=== PATIENT | female | born 1970 | race African-American/Black ===

== ENCOUNTER 2016-09-28 19:53 | Emergency (ER) | payer OTHER ==
[~2016-09-28] VITALS: Ht 170.2 cm; Wt 79.4 kg
[~2016-09-28 19:53] MED LIST: AMITRIPTYLINE H50 M2 PO; CIPROFLOXACIN500 M1 PO; DOXYCYCLINE 10100 MG PO; FLEXERIL PO; FOLIC ACID0.4 MG PO; IBUPROFEN 600600 M1 PO; IRON256 MG PO; LOESTRIN1 EAC1; METHOTREXATE 22.5 MG PO; NOHOMEMEDICATIONS; NORCO 5-325 TA1 EACH PO; ONE DAILY WOME1 EAC3 PO; PREDNISONE 10 M10 MG PO; PREDNISONE 20 M20 M1 PO; PREDNISONE 20 M20 MG PO; PROMETHAZINE D480 ML PO; PROVENTIL IN; PROVERA10 MG PO; ULTRAM 50MG TAB50 MG PO
[2016-09-28] MEDS ORDERED: ACETAMINOPHEN-1 EAC1 PO (21:23)
[2016-09-28] MEDS ORDERED: IBUPROFEN 600600 M1 PO (21:23)
== END 2016-09-28 21:49 | disposition home or self-care (01) ==
LOC: ER 19:53
DX: T22.012A Burn of unspecified degree of left forearm, initial encounter (principal); F10.99 Alcohol use, unspecified with unspecified alcohol-induced disorder; X15.8XXA Contact with other hot household appliances, initial encounter; Y93.9 Activity, unspecified; Y92.009 Unspecified place in unspecified non-institutional (private) residence as the place of occurrence of the external cause; Y99.9 Unspecified external cause status

== ENCOUNTER 2018-01-25 21:27 | Emergency (ER) | payer OTHER ==
[~2018-01-25] VITALS: Ht 167.6 cm; Wt 74.8 kg
[~2018-01-25 21:27] MED LIST changes: +ACETAMINOPHEN-1 EAC1 PO
[2018-01-25] MEDS ORDERED: KEFLEX500 M1 PO (22:40)
[2018-01-25] MEDS ORDERED: HYDROCODONE-AP1 EAC6 PO (22:40)
== END 2018-01-25 23:13 | disposition home or self-care (01) ==
LOC: ER 21:27
DX: T24.291A Burn of second degree of multiple sites of right lower limb, except ankle and foot, initial encounter (principal); T31.0 Burns involving less than 10% of body surface; F17.210 Nicotine dependence, cigarettes, uncomplicated; X08.8XXA Exposure to other specified smoke, fire and flames, initial encounter; Y93.89 Activity, other specified; Y92.89 Other specified places as the place of occurrence of the external cause; Y99.8 Other external cause status

== ENCOUNTER 2018-02-01 08:41 | Emergency (ER) | payer OTHER ==
[~2018-02-01] VITALS: Ht 167.6 cm; Wt 68.0 kg
[~2018-02-01 08:41] MED LIST changes: +HYDROCODONE-AP1 EAC6 PO; +KEFLEX500 M1 PO
[2018-02-01] MEDS ORDERED: KEFLEX500 M1 PO (09:11)
[2018-02-01] MEDS ORDERED: HYDROCODONE-AP1 EAC6 PO (09:11)
== END 2018-02-01 09:28 | disposition home or self-care (01) ==
LOC: ER 08:41
DX: T24.211D Burn of second degree of right thigh, subsequent encounter (principal); F17.210 Nicotine dependence, cigarettes, uncomplicated; X58.XXXD Exposure to other specified factors, subsequent encounter

== ENCOUNTER 2018-02-07 21:18 | Emergency (ER) | payer OTHER ==
[~2018-02-07] VITALS: Ht 167.6 cm; Wt 72.6 kg
[2018-02-07] MEDS ORDERED: HYDROCODONE-AP1 EAC6 PO (21:43)
== END 2018-02-07 22:31 | disposition home or self-care (01) ==
LOC: ER 21:18
DX: T24.211D Burn of second degree of right thigh, subsequent encounter (principal); T31.0 Burns involving less than 10% of body surface; D86.9 Sarcoidosis, unspecified; F17.210 Nicotine dependence, cigarettes, uncomplicated; X10.2XXD Contact with fats and cooking oils, subsequent encounter

== ENCOUNTER 2018-06-15 16:44 | Emergency (ER) | payer OTHER ==
[~2018-06-15] VITALS: Ht 167.6 cm; Wt 70.3 kg
[2018-06-15] MEDS ORDERED: PREDNISONE 10 M10 MG PO (17:53)
== END 2018-06-15 18:15 | disposition home or self-care (01) ==
LOC: ER 16:44
DX: D86.9 Sarcoidosis, unspecified (principal); F17.210 Nicotine dependence, cigarettes, uncomplicated; Z98.890 Other specified postprocedural states

== ENCOUNTER 2018-09-13 17:59 | Emergency (ER) | payer OTHER ==
[~2018-09-13] VITALS: Ht 167.6 cm; Wt 75.8 kg
[2018-09-13 19:33] LABS: ABSOLUTE NEUTROPHILS 6.1 thou/uL (1.4-8.2); BASOPHILS 1.1 % (0.0-2.0); EOSINOPHILS 1.3 % (0.0-3.0); HEMATOCRIT 36.5 % (37.0-47.0); HEMOGLOBIN 11.9 gm/dL (12.0-15.0); LYMPHOCYTES 14.8 % (24.0-44.0); MCHC 32.5 g/dL (28.0-37.0); MCV 86.2 fL (80.0-100.0); MONOCYTES 10.8 % (1.0-8.0); PLATELET COUNT 278 thou/uL (150-400); RBC 4.24 mil/uL (4.20-5.00); RDW 19.5 % (10.5-14.5); WBC 8.4 thou/uL (4.0-11.0)
[2018-09-13 19:41] LABS: ANION GAP 8 mmol/L (7-16); BUN 12 mg/dL (7-18); CALCIUM 9.4 mg/dL (8.5-10.1); CHLORIDE 101 mmol/L (98-107); CO2 30 mmol/L (21-32); CREATININE 0.8 mg/dL (0.6-1.0); GLUCOSE 82 mg/dL (74-106); POTASSIUM 3.7 mmol/L (3.5-5.1); SODIUM 139 mmol/L (136-145)
[2018-09-13 19:50] LABS: ALBUMIN 3.8 g/dL (3.4-5.0); SGOT 30 U/L (15-37); SGPT 27 U/L (30-65); TOTAL BILIRUBIN 0.2 mg/dL (<0.1-1.0); TOTAL PROTEIN 8.9 g/dL (6.4-8.2); TROPONIN-I <0.06 ng/mL (<0.06)
[2018-09-13 20:07] LABS: ANISOCYTOSIS 1+
[2018-09-13] MEDS ORDERED: VENTOLIN HFA 1818 GM INH (20:43)
[2018-09-13] MEDS ORDERED: PREDNISONE 10 M10 MG PO (20:43)
[2018-09-13 21:07] VITALS: BP 124/85
--- NOTE | 2018-09-14 07:58 | EKG ---
[place] [address] [facility] [place] [address] ELECTROCARDIOGRAM REPORT Name: AUSTIN FUENTES Room #: DEP [facility]#: [id number] Admission: 09/13/18 Attend Phys: Discharge: 09/13/18 Date of : 70 Report #: [id number] THIS REPORT FOR: //name// [facility] ED Test Date: 2018-09-13 Test Time: 20:02:45 Pat Name: AUSTIN FUENTES Department: Room: Gender: F Pathology Tech: camden : 1970 Requested By: Yareli Beltran Order Number: [id number] MD: Naresh Yoder Measurements Intervals [place] Rate: 78 P: 44 [place]: 161 QRS: 7 QRSD: 84 T: 25 QT: 435 QTc: 496 Interpretive Statements Sinus rhythm Abnormal R-wave progression, early transition Borderline prolonged QT interval No previous ECG available for comparison Electronically Signed On 09-14-2018 7:58:24 SUBCONTRACT ADMINISTRATOR by Naresh Yoder [email or web address] <ELECTRONICALLY SIGNED> By: Naresh Yoder MD, [facility] 09/14/18 0758 01 01 Naresh Yoder MD, FACC /EPI
== END 2018-09-13 21:08 | disposition home or self-care (01) ==
LOC: ER 17:59
PROVIDERS: Physician Assistant
DX: D86.9 Sarcoidosis, unspecified (principal); R06.00 Dyspnea, unspecified; F17.210 Nicotine dependence, cigarettes, uncomplicated; Z98.890 Other specified postprocedural states

== ENCOUNTER 2018-10-31 17:31 | Inpatient (IN) | payer OTHER ==
[~2018-10-31] VITALS: Ht 167.6 cm; Wt 77.1 kg
[~2018-10-31 17:31] MED LIST changes: +VENTOLIN HFA 1818 GM INH
[2018-10-31 17:49] VITALS: BP 148/64
[2018-10-31 19:45] LABS: HEMATOCRIT 35.2 % (37.0-47.0); HEMOGLOBIN 11.2 gm/dL (12.0-15.0); MCH 27.7 pg (26.0-34.0); MCHC 31.9 g/dL (28.0-37.0); MCV 86.8 fL (80.0-100.0); PLATELET COUNT 212 thou/uL (150-400); RBC 4.06 mil/uL (4.20-5.00)
[2018-10-31 19:54] LABS: ANION GAP 9 mmol/L (7-16); BUN 11 mg/dL (7-18); CALCIUM 9.3 mg/dL (8.5-10.1); CHLORIDE 97 mmol/L (98-107); CO2 31 mmol/L (21-32); CREATININE 0.7 mg/dL (0.6-1.0); GLUCOSE 168 mg/dL (74-106); SODIUM 137 mmol/L (136-145)
[2018-10-31 19:58] LABS: POTASSIUM 2.9 mmol/L (3.5-5.1)
[2018-10-31 20:02] LABS: TROPONIN-I <0.06 ng/mL (<0.06)
[2018-10-31 20:24] LABS: ABSOLUTE NEUTROPHILS 11.9 thou/uL (1.4-8.2)
[2018-10-31 20:25] LABS: ANISOCYTOSIS 1+
--- NOTE | 2018-10-31 20:41 | NUR ---
PT AMBULATED TO BATHROOM WITH STEADY GAIT.
[2018-10-31] MEDS ORDERED: PROMETH-CODEIN 65 ML PO (21:32)
[2018-10-31] MEDS ORDERED: DOXYCYCLINE 10100 MG PO (21:32)
[2018-10-31] MEDS ORDERED: MEDROLDOSEPACK PO (21:32)
[2018-10-31 22:13] VITALS: BP 164/109
[2018-10-31 22:30] VITALS: BP 147/103
[2018-10-31 22:36] VITALS: BP 131/91
[2018-11-01] VITALS: BP 118/81
[2018-11-01 04:15] VITALS: BP 120/80
[2018-11-01 06:33] LABS: CREATININE 0.8 mg/dL (0.6-1.0); MAGNESIUM 1.3 mg/dL (1.8-2.4); POTASSIUM 3.8 mmol/L (3.5-5.1)
--- NOTE | 2018-11-01 06:41 | NUR ---
ASSUMED CARE OF PT DURING ADMISSION TO THE UNIT. A&OX4, VS STABLE. C/O COUGH AND BEING SOA. O2 SAT WAS 99% ON CHECK. HOME DOSE OF 2L O2 BY NC INITIATED PER PT REQUEST. STRONG COUGH EFFORT, WAS CONGESTIVE BUT UNABLE TO COUGH UP SPUTUM SAMPLE SO FAR. IV ANTIBX GIVEN ORDERED. REQUEST DINNER BOX, PROVIDED, PT ATE 100% AND TOLERATED FINE. CURRENTLY RESTING AND PROGRESSING TOWARDS POC GOALS.
[2018-11-01 07:22] VITALS: BP 139/97
--- NOTE | 2018-11-01 09:20 | EKG ---
[address] [place] [address] ELECTROCARDIOGRAM REPORT Name: AUSTIN FUENTES Room #: 349-I ADM IN .R.#: [id number] ������������������ Admission: 10/31/18 ������������������ Attend Phys: Jonas Harris MD Discharge: ������������������ Date of : 70 Report #: [id number] ����������������������������������������������������������������� [id number] THIS REPORT FOR: //name// [facility] ED Test Date: 2018-10-31 Test Time: 19:22:24 Pat Name: AUSTIN FUENTES Department: Room: [facility] Gender: F Breaker Engineer: KKODRITA : 1970 Requested By: Bowen Oliveros Order Number: [id number] MD: Naresh Yoder Measurements Intervals [place] Rate: 68 P: 60 FL: 157 QRS: 13 QRSD: 88 T: 17 QT: 436 QTc: 464 Interpretive Statements Sinus rhythm No significant abnormality Compared to ECG 09/13/2018 20:02:45 No significant changes Electronically Signed On 11-01-2018 9:20:26 CUSTOMER SUPPORT ANALYST by Naresh Yoder [email or web address] ��������������������������������������������� <ELECTRONICALLY SIGNED> ���������������������������������������� By: Naresh Yoder MD, [facility] ��������������������������������������������� 11/01/18 0920 21 21 Naresh Yoder MD, [facility] /EPI
--- NOTE | 2018-11-01 13:01 | NUR ---
INITIAL ASSESSMENT: Pt evaluated for d/c planning needs. Reviewed chart and spoke with nurse and pt. Pt is alert and oriented. Pt lives in apartment with children and was independent with ADL's prior to admission to the hospital. Pt had caregiver services through Medicaid in the past, but not currently. Pt has home 02, but does not recall name of provider. Pt has portable tank in her room for trip home. Pt has not had home health in the past. Pt plans on returning home on d/c from hospital. Will remain available to assist as needed.
[2018-11-01 15:53] VITALS: BP 152/110
--- NOTE | 2018-11-01 16:24 | 2DMMODE ---
[place] [address] [email or web address] [place] [address] 2 D/M-MODE ECHOCARDIOGRAM Name: AUSTIN FUENTES [place] Room #: 349-I ADM IN ..#: [id number] ������������� Admission: 10/31/18 ������������� Attend Phys: Jonas Harris MD Discharge: ��� ������������� ��� Date of : 70 Date of Service: 11/01/18 1624 �� Report #: [id number] �������� ��������������������������������������������[id number] THIS REPORT FOR: //name// APPROVED REPORT Study performed: 11/01/2018 12:52:33 EXAM: Comprehensive 2D, Doppler, and color-flow Echocardiogram Patient Location: Bedside Room #: 349 Status: routine BSA: 1.87 HR: 67 bpm BP: 139/97 mmHg Rhythm: NSR Other Information Study Quality: Good Indications Chest Pain Hypoxia Sarcoidosis 2D Dimensions IVSd: 10.55 (7-11mm) LVOT Diam: 20.00 (18-24mm) LVDd: 36.58 mm PWd: 10.89 (7-11mm) Ascending Ao: 34.21 (22-36mm) LVDs: 28.39 (25-40mm) Aortic Root: 33.22 mm LV Single Plane 4CH: 58.99 % LV Single Plane 2CH: 60.46 % Biplane EF: 58.5 % Volumes Left Atrial Volume (Systole) Single Plane 4CH: 33.66 mL Single Plane 2CH: 42.66 mL LA ESV Index: 23.00 mL/m2 Aortic Valve AoV Peak Tom.: 1.26 m/s AO Peak Gr.: 6.35 mmHg LVOT Max P.88 mmHg LVOT Max V: 0.98 m/s GONZALO Vmax: 2.44 cm2 [facility] [address] [place] [address] 2 D/M-MODE ECHOCARDIOGRAM Name: AUSTIN FUENTES Praful Room #: [address] [place] [address] IN [facility]#: [id number] ������������� Admission: 10/31/18 ������������� Attend Phys: Jonas Harris MD Discharge: ��� ������������� ��� Date of : 70 Date of Service: 11/01/18 1624 �� Report #: [id number] �������� ��������������������������������������������[id number] Mitral Valve E/A Ratio: 0.8 MV Decel. Time: 223.63 ms MV E Max Tom.: 0.66 m/s MV A Tom.: 0.86 m/s MV PHT: 64.85 ms IVRT: 79.58 ms TDI E/Lateral E': 5.50 E/Medial E': 9.43 Medial E' Tom.: 0.07 m/s Lateral E' Tom.: 0.12 m/s Pulmonary Valve PV Peak Tom.: 0.77 m/s PV Peak Gr.: 2.43 mmHg Pulmonary Vein P Vein S: 0.79 m/s P Vein A: 0.30 m/s P Vein D: 0.40 m/s P Vein A Dur.: 93.4 msec P Vein S/D Ratio: 1.98 Tricuspid Valve RAP Estimate: 7.00 mmHg Left Ventricle The left ventricle is normal size. There is normal LV segmental wall motion. Borderline concentric left ventricular hypertrophy. Left ventricular systolic function is normal. The left ventricular ejection fraction is within the normal range. LVEF is 60%. Mild diastolic dysfunction is present (impaired relaxation pattern). Right Ventricle The right ventricle is normal size. The right ventricular systolic function is normal. Atria The left atrium size is normal. The right atrium size is normal. Aortic Valve The Aortic valve is sclerotic. No aortic regurgitation is present. There is no aortic valvular stenosis. Mitral Valve The mitral valve is normal in structure. Trace mitral regurgitation. [address] [address] 2 D/M-MODE ECHOCARDIOGRAM Name: AUSTIN FUENTES Room #: 349-I [facility] IN [facility]#: [id number] ������������� Admission: 10/31/18 ������������� Attend Phys: Jonas Harris MD Discharge: ��� ������������� ��� Date of : 70 Date of Service: 11/01/18 1624 �� Report #: [id number] �������� ��������������������������������������������[id number] No evidence of mitral valve stenosis. Tricuspid Valve The tricuspid valve is normal in structure. Trace tricuspid regurgitation. Unable to assess PA pressure. Pulmonic Valve The pulmonary valve is normal in structure. There is no pulmonic valvular regurgitation. Great Vessels The aortic root is normal in size. IVC is normal in size and collapses >50% with inspiration. Pericardium There is no pericardial effusion. <Conclusion> The left ventricle is normal size. LVEF is 60%. The Aortic valve is sclerotic. No aortic regurgitation is present. There is no aortic valvular stenosis. The mitral valve is normal in structure. Trace mitral regurgitation. The tricuspid valve is normal in structure. Trace tricuspid regurgitation. Unable to assess PA pressure. There is no pericardial effusion. ��������������������������������������������� <ELECTRONICALLY SIGNED> ���������������������������������������� By: Shawn Coffey MD ��������������������������������������������� 11/01/18 1624 1624 1624 Shawn Coffey MD /INF
--- NOTE | 2018-11-01 16:33 | NUR ---
ASSUMED PATIEM CARE AT 0700. A/O XO . NO SOB NOTED. ABLE TO COUGH OUT SOME PHLEGM. VSS. PROGRESSING TOWARDS POC GOALS.
[2018-11-01 19:04] VITALS: BP 162/109
[2018-11-01 23:07] LABS: GLYCOHEMOGLOBIN (HGB A1C) 5.7 % (4.8-5.6)
[2018-11-02 04:14] VITALS: BP 150/96
[2018-11-02 05:26] LABS: ABSOLUTE NEUTROPHILS 12.4 thou/uL (1.4-8.2); BASOPHILS 0.1 % (0.0-2.0); HEMATOCRIT 31.2 % (37.0-47.0); HEMOGLOBIN 9.9 gm/dL (12.0-15.0); LYMPHOCYTES 4.1 % (24.0-44.0); MCHC 31.7 g/dL (28.0-37.0); MCV 88.2 fL (80.0-100.0); MONOCYTES 3.9 % (1.0-8.0); PLATELET COUNT 250 thou/uL (150-400); POLYS 91.9 % (36.0-66.0); RBC 3.54 mil/uL (4.20-5.00); RDW 19.8 % (10.5-14.5); WBC 13.5 thou/uL (4.0-11.0)
--- NOTE | 2018-11-02 05:57 | NUR ---
PATIENTS CARES WERE ASSUMED AT SHIFT CHANGE. PATIENT WAS ASSESSED AND MEDS WERE PASSED. PATIENT DID AMBULATE IN THE [place] THIS SHIFT. CHANGES IN HER BREATHING HAS BEEN BETTER. HOURLY ROUNDING WAS DONE PATIENT DID APPER TO BE SLEEPING WELL. THE BED IS IN A LOW AND LOCKED POSITION.
[2018-11-02 07:26] VITALS: BP 129/81
[2018-11-02] MEDS ORDERED: BENZONATATE100 MG PO (08:03)
[2018-11-02] MEDS ORDERED: HYDROCODONE-AP1 EAC6 PO (08:03)
[2018-11-02] MEDS ORDERED: AZITHROMYCIN 2250 MG PO (08:03)
[2018-11-02 08:44] VITALS: BP 129/81
[2018-11-02 08:48] VITALS: BP 129/81
[2018-11-02 10:23] VITALS: BP 129/81
[2018-11-02 13:13] VITALS: BP 129/81
--- NOTE | 2018-11-02 13:13 | NUR ---
patient discharged to home with scripts. medications reviewes as well as discharge instructions. patient denied further questions. iv was removed by pct.
--- NOTE | 2018-11-02 14:21 | NUR ---
DISCHARGE NOTE: SW reviewed chart and spoke with nursing and attending physician. Pt is medically stable for discharge home today. Pt's family to provide transportation home. No SW discharge needs identified at this time, but is available to assist should needs arise.
== END 2018-11-02 14:17 | disposition home or self-care (01) | DRG 871 ==
LOC: ER 17:31 → 3W 22:31
PROVIDERS: Nurse Practitioner Acute Care; Physician Assistant; ADMIT Hospitalist
DX: A41.9 Sepsis, unspecified organism (principal); J18.9 Pneumonia, unspecified organism; E87.6 Hypokalemia; D86.0 Sarcoidosis of lung; R73.9 Hyperglycemia, unspecified; E83.42 Hypomagnesemia; F17.210 Nicotine dependence, cigarettes, uncomplicated; Z98.891 History of uterine scar from previous surgery; Z98.42 Cataract extraction status, left eye; Z79.899 Other long term (current) drug therapy; Z23 Encounter for immunization
CPT/HCPCS: 10080

== ENCOUNTER → 2018-12-30 | Outpatient (CLI) | payer OTHER ==
[~2018-12-30] MED LIST changes: +AZITHROMYCIN 2250 MG PO; +BENZONATATE100 MG PO; +MEDROLDOSEPACK PO; +PROMETH-CODEIN 65 ML PO
== END ==
LOC: CAT 12-16 09:37
DX: J98.4 Other disorders of lung (principal); J96.11 Chronic respiratory failure with hypoxia; J44.9 Chronic obstructive pulmonary disease, unspecified; D86.9 Sarcoidosis, unspecified

== ENCOUNTER 2019-05-04 19:05 | Emergency (ER) | payer OTHER ==
[~2019-05-04] VITALS: Ht 167.6 cm; Wt 77.1 kg
[2019-05-04 20:26] LABS: URINE BILIRUBIN NEGATIVE (Negative); URINE BLOOD NEGATIVE (Negative); URINE CLARITY CLEAR; URINE COLOR YELLOW; URINE GLUCOSE-RANDOM* NEGATIVE (Negative); URINE KETONES NEGATIVE (Negative); URINE LEUKOCYTES-REFLEX NEGATIVE (Negative); URINE NITRITE-REFLEX NEGATIVE (Negative); URINE PROTEIN (DIPSTICK) TRACE (Negative); URINE SPECIFIC GRAVITY 1.015 (1.005-1.035)
[2019-05-04 20:48] LABS: HEMATOCRIT 33.3 % (37.0-47.0); HEMOGLOBIN 10.7 gm/dL (12.0-15.0); MCH 27.3 pg (26.0-34.0); MCHC 32.3 g/dL (28.0-37.0); MCV 84.4 fL (80.0-100.0); PLATELET COUNT 148 thou/uL (150-400); RBC 3.94 mil/uL (4.20-5.00); RDW 20.4 % (10.5-14.5); WBC 5.4 thou/uL (4.0-11.0)
[2019-05-04 20:59] LABS: ANION GAP 13 mmol/L (7-16); BUN 12 mg/dL (7-18); CALCIUM 8.7 mg/dL (8.5-10.1); CHLORIDE 101 mmol/L (98-107); CO2 26 mmol/L (21-32); CREATININE 0.7 mg/dL (0.6-1.0); GLUCOSE 101 mg/dL (74-106); POTASSIUM 3.5 mmol/L (3.5-5.1); SODIUM 140 mmol/L (136-145)
[2019-05-04 21:04] LABS: APTT 28.1 Seconds (24.5-32.8); D-DIMER 2.66 ug/mLFEU (0.19-0.50); PROTIME 9.8 Seconds (9.3-11.4)
[2019-05-04 21:10] LABS: ALBUMIN 3.5 g/dL (3.4-5.0); MAGNESIUM 1.5 mg/dL (1.8-2.4); SGOT 55 U/L (15-37); SGPT 32 U/L (30-65); TOTAL BILIRUBIN 0.4 mg/dL (<0.1-1.0); TOTAL PROTEIN 8.5 g/dL (6.4-8.2); TROPONIN-I <0.06 ng/mL (<0.06)
[2019-05-04 21:21] LABS: ABSOLUTE NEUTROPHILS 3.1 thou/uL (1.4-8.2); ANISOCYTOSIS 1+
[2019-05-04] MEDS ORDERED: DOXYCYCLINE 10100 MG PO (23:56)
[2019-05-04] MEDS ORDERED: TESSALON PERLE100 MG PO (23:56)
[2019-05-04] MEDS ORDERED: PREDNISONE 20 M20 MG PO (23:56)
[2019-05-04] MEDS ORDERED: VENTOLIN HFA 1818 GM INH (23:56)
[2019-05-05 00:19] VITALS: BP 157/105
--- NOTE | 2019-05-05 08:38 | EKG ---
[address] [address] ELECTROCARDIOGRAM REPORT Name: AUSTIN FUENTES Room #: DEP [facility]#: [id number] Admission: 05/04/19 Attend Phys: Discharge: 05/05/19 Date of : 70 Report #: [id number] THIS REPORT FOR: //name// [facility] ED Test Date: 2019-05-04 Test Time: 20:54:25 Pat Name: AUSTIN FUENTES Department: Room: Gender: F Splicing Technician: KMD : 1970 Requested By: Ministerio Thakkar Order Number: [id number] MD: Ronal Guzman Measurements Intervals [place] Rate: 82 P: 68 [place]: 156 QRS: 11 QRSD: 81 T: 10 QT: 445 QTc: 520 Interpretive Statements Sinus rhythm Probable left atrial enlargement Prolonged QT interval Compared to ECG 10/31/2018 19:22:24 Prolonged QT interval now present Electronically Signed On 05-05-2019 8:38:32 CDT by Ronal Guzman [email or web address] <ELECTRONICALLY SIGNED> By: Ronal Guzman MD 05/05/19 0838 53 53 Ronal Guzman MD /ROWENA
== END 2019-05-05 00:19 | disposition home or self-care (01) ==
LOC: ER 19:05
PROVIDERS: Emergency Medicine
DX: J20.9 Acute bronchitis, unspecified (principal); R04.2 Hemoptysis; D86.9 Sarcoidosis, unspecified; R42 Dizziness and giddiness; F17.210 Nicotine dependence, cigarettes, uncomplicated; Z98.890 Other specified postprocedural states

== ENCOUNTER 2019-07-17 11:41 | Emergency (ER) | payer OTHER ==
[~2019-07-17] VITALS: Ht 167.6 cm; Wt 72.6 kg
[~2019-07-17 11:41] MED LIST changes: +TESSALON PERLE100 MG PO
[2019-07-17 11:45] VITALS: BP 114/92
[2019-07-17] MEDS ORDERED: NORCO 5-325 TA1 EAC1 PO (12:19)
[2019-07-17] MEDS ORDERED: LIDOCAINE PAIN1 EACH TRANSDERM (12:19)
[2019-07-17] MEDS ORDERED: CYCLOBENZAPRINE5 MG PO (12:19)
== END 2019-07-17 12:32 | disposition home or self-care (01) ==
LOC: ER 11:41
DX: M54.2 Cervicalgia (principal); M54.5 Low back pain; R05 Cough; D86.9 Sarcoidosis, unspecified; F17.210 Nicotine dependence, cigarettes, uncomplicated; Z98.890 Other specified postprocedural states; V49.50XA Passenger injured in collision with unspecified motor vehicles in traffic accident, initial encounter; Y92.89 Other specified places as the place of occurrence of the external cause; Y93.89 Activity, other specified; Y99.8 Other external cause status

== ENCOUNTER 2019-12-28 18:56 | Emergency (ER) | payer OTHER ==
[~2019-12-28] VITALS: Ht 170.2 cm; Wt 72.6 kg
[~2019-12-28 18:56] MED LIST changes: +CYCLOBENZAPRINE5 MG PO; +LIDOCAINE PAIN1 EACH TRANSDERM; +NORCO 5-325 TA1 EAC1 PO
[2019-12-28] MEDS ORDERED: PROAIR HFA8.5 GM INH (19:54)
[2019-12-28] MEDS ORDERED: PREDNISONE 5 MG5 M1 PO (19:54)
[2019-12-28 20:15] VITALS: BP 134/95
== END 2019-12-28 20:18 | disposition home or self-care (01) ==
LOC: ER 18:56
DX: D86.9 Sarcoidosis, unspecified (principal); R05 Cough; R06.02 Shortness of breath; M79.10 Myalgia, unspecified site; F17.210 Nicotine dependence, cigarettes, uncomplicated

== ENCOUNTER 2020-10-20 21:26 | Emergency (ER) | payer OTHER ==
[~2020-10-20] VITALS: Ht 170.2 cm; Wt 68.5 kg
[~2020-10-20 21:26] MED LIST changes: +ADVAIR 100-501 EACH INH; +PREDNISONE 10 M10 M1 PO; +PREDNISONE 5 MG5 M1 PO; +PROAIR HFA8.5 GM INH; +TIZANIDINE4 MG/1 TA1 PO
[2020-10-20] MEDS ORDERED: PREDNISONE50 MG PO (23:07)
[2020-10-20 23:46] VITALS: BP 130/97
== END 2020-10-20 23:47 | disposition home or self-care (01) ==
LOC: ER 21:26
DX: S01.81XA Laceration without foreign body of other part of head, initial encounter (principal); J44.9 Chronic obstructive pulmonary disease, unspecified; M79.601 Pain in right arm; R42 Dizziness and giddiness; Z79.899 Other long term (current) drug therapy; W00.0XXA Fall on same level due to ice and snow, initial encounter; Y93.89 Activity, other specified; Y92.481 Parking lot as the place of occurrence of the external cause; Y99.8 Other external cause status

== ENCOUNTER 2020-10-29 11:35 | Emergency (ER) | payer OTHER ==
[~2020-10-29] VITALS: Ht 170.2 cm; Wt 68.0 kg
[~2020-10-29 11:35] MED LIST changes: +PREDNISONE50 MG PO
[2020-10-29 12:23] VITALS: BP 115/78
== END 2020-10-29 12:32 | disposition home or self-care (01) ==
LOC: ER 11:35
DX: S01.81XD Laceration without foreign body of other part of head, subsequent encounter (principal); Z79.899 Other long term (current) drug therapy; X58.XXXD Exposure to other specified factors, subsequent encounter

== ENCOUNTER 2020-12-12 13:42 | Emergency (ER) | payer OTHER ==
[~2020-12-12] VITALS: Ht 172.7 cm; Wt 74.8 kg
[2020-12-12 14:20] LABS: ABSOLUTE NEUTROPHILS 6.3 thou/uL (1.4-8.2); BASOPHILS 0.6 % (0.0-2.0); HEMATOCRIT 38.1 % (37.0-47.0)
[2020-12-12 14:22] LABS: EOSINOPHILS 1.3 % (0.0-3.0); HEMOGLOBIN 12.6 gm/dL (12.0-15.0); LYMPHOCYTES 8.3 % (24.0-44.0); MCH 33.2 pg (26.0-34.0); MCV 100.8 fL (80.0-100.0); MONOCYTES 8.6 % (1.0-8.0); PLATELET COUNT 217 thou/uL (150-400); POLYS 81.2 % (36.0-66.0); RBC 3.78 mil/uL (4.20-5.00); RDW 15.6 % (10.5-14.5); WBC 8.8 thou/uL (4.0-11.0)
[2020-12-12 15:00] LABS: URINE BILIRUBIN NEGATIVE (Negative); URINE BLOOD NEGATIVE (Negative); URINE CLARITY CLEAR; URINE COLOR YELLOW; URINE GLUCOSE-RANDOM* NEGATIVE (Negative); URINE KETONES NEGATIVE (Negative); URINE LEUKOCYTES-REFLEX TRACE (Negative); URINE PROTEIN (DIPSTICK) 1+ (Negative); URINE SPECIFIC GRAVITY 1.025 (1.005-1.035)
[2020-12-12 15:01] LABS: URINE NITRITE-REFLEX POSITIVE (Negative)
[2020-12-12 15:07] LABS: CALCIUM 8.5 mg/dL (8.5-10.1); CREATININE 0.7 mg/dL (0.6-1.0); POTASSIUM 3.5 mmol/L (3.5-5.1)
[2020-12-12 15:11] LABS: SQUAMOUS >10 Many /LPF (0-3)
[2020-12-12 15:12] LABS: BACTERIA-REFLEX >30 Many /HPF (None Seen); CASTS None Seen /LPF (None Seen); CRYSTALS None Seen /LPF (None Seen); URINE RBC 0-2 Rare /HPF (0-2); URINE WBC-REFLEX 0-5 Rare /HPF (0-5)
[2020-12-12 15:13] LABS: MUCUS 4-6 Moderate strn/LPF (None Seen)
[2020-12-12 15:13] LABS: ALBUMIN 3.3 g/dL (3.4-5.0); TOTAL BILIRUBIN 0.3 mg/dL (0.2-1.0); TOTAL PROTEIN 7.2 g/dL (6.4-8.2)
[2020-12-12] MEDS ORDERED: PREDNISONE 20 M20 MG PO (15:57)
[2020-12-12] MEDS ORDERED: KEFLEX500 M1 PO (15:57)
--- NOTE | 2020-12-12 16:35 | EKG ---
[place] [address] [employer] [place] [address] ELECTROCARDIOGRAM REPORT Name: AUSTIN FUENTES Room #: [facility]#: [id number] Admission: 12/12/20 Attend Phys: Discharge: Date of : 70 Report #: [id number] [facility] ED Test Date: 2020-12-12 Test Time: 13:54:58 Pat Name: AUSTIN FUENTES Department: Room: Gender: F Air Support Control Officer: RAFA : 1970 Requested By: Matt Carrera Order Number: [id number] MD: Martinez Pantoja Measurements Intervals [place] Rate: 87 P: 61 [place]: 151 QRS: -5 QRSD: 80 T: 24 QT: 354 QTc: 426 Interpretive Statements Sinus rhythm Compared to ECG 05/04/2019 20:54:25 Prolonged QT interval no longer present Electronically Signed On 12-12-2020 16:35:07 CDT by Martinez Pantoja [email or web address] <ELECTRONICALLY SIGNED> By: Martinez Pantoja MD, [facility] 12/12/20 1635 1354 1354 Martinez Pantoja MD, FACC /EPI
[2020-12-12 17:35] VITALS: BP 134/74
== END 2020-12-12 17:35 | disposition home or self-care (01) ==
LOC: ER 13:42
PROVIDERS: Emergency Medicine
DX: D86.9 Sarcoidosis, unspecified (principal); N39.0 Urinary tract infection, site not specified; Z79.899 Other long term (current) drug therapy

== ENCOUNTER 2020-12-24 17:47 | Emergency (ER) | payer OTHER ==
[~2020-12-24] VITALS: Ht 172.7 cm; Wt 74.8 kg
[2020-12-24] MEDS ORDERED: NORCO7.5 PO (19:43)
[2020-12-24 20:21] VITALS: BP 119/56
== END 2020-12-24 20:22 | disposition home or self-care (01) ==
LOC: ER 17:47
DX: S82.492A Other fracture of shaft of left fibula, initial encounter for closed fracture (principal); Z79.899 Other long term (current) drug therapy; X50.1XXA Overexertion from prolonged static or awkward postures, initial encounter; Y93.89 Activity, other specified; Y92.89 Other specified places as the place of occurrence of the external cause; Y99.9 Unspecified external cause status

== ENCOUNTER 2021-08-04 19:06 | Emergency (ER) | payer OTHER ==
[~2021-08-04] VITALS: Ht 167.6 cm; Wt 65.8 kg
[~2021-08-04 19:06] MED LIST changes: +NORCO7.5 PO
[2021-08-04 20:25] LABS: ABSOLUTE NEUTROPHILS 11.1 thou/uL (1.4-8.2); BASOPHILS 0.4 % (0.0-2.0); EOSINOPHILS 0.6 % (0.0-3.0); HEMATOCRIT 41.3 % (37.0-47.0); HEMOGLOBIN 13.1 gm/dL (12.0-15.0); LYMPHOCYTES 7.4 % (24.0-44.0); MCH 31.1 pg (26.0-34.0); MCHC 31.7 g/dL (28.0-37.0); MCV 98.3 fL (80.0-100.0); MONOCYTES 9.8 % (1.0-8.0); PLATELET COUNT 287 thou/uL (150-400); POLYS 81.8 % (36.0-66.0); RDW 15.9 % (10.5-14.5); WBC 13.5 thou/uL (4.0-11.0)
[2021-08-04 20:44] LABS: CALCIUM 8.8 mg/dL (8.5-10.1); CREATININE 0.7 mg/dL (0.6-1.0); POTASSIUM 3.6 mmol/L (3.5-5.1)
[2021-08-04] MEDS ORDERED: [UNRECOGNIZED DRUG - OTHER] PO (21:12)
[2021-08-04] MEDS ORDERED: PREDNISONE 20 M20 MG PO (21:12)
[2021-08-04 21:19] VITALS: BP 162/97
--- NOTE | 2021-08-05 07:27 | EKG ---
[place] [address] [facility] [place] [address] ELECTROCARDIOGRAM REPORT Name: AUSTIN FUENTES Room #: DEP [facility]#: [id number] Admission: 08/04/21 Attend Phys: Discharge: 08/04/21 Date of : 70 Report #: [id number] [facility] ED Test Date: 2021-08-04 Test Time: 19:39:37 Pat Name: AUSTIN FUENTES Department: Room: Gender: F Oracle Software Engineer: marian delaney : 1970 Requested By: Heber Mchugh Order Number: [id number] MD: Martinez Pantoja Measurements Intervals [place] Rate: 108 P: 66 [place]: 140 QRS: 7 QRSD: 73 T: 269 QT: 448 QTc: 601 Interpretive Statements Sinus tachycardia Borderline T abnormalities, inferior leads Prolonged QT interval Compared to ECG 12/12/2020 13:54:58 T-wave abnormality now present Prolonged QT interval now present Sinus rhythm no longer present Electronically Signed On 08-05-2021 7:27:05 COMPUTER SUPPORT TECHNICIAN by Martinez Pantoja [email or web address] <ELECTRONICALLY SIGNED> By: Martinez Pantoja MD, [facility] 08/05/21726 38 38 Martinez Pantoja MD, FACC /EPI
== END 2021-08-04 21:28 | disposition home or self-care (01) ==
LOC: ER 19:06
PROVIDERS: Nurse Practitioner
DX: R07.89 Other chest pain (principal); M79.18 Myalgia, other site; Z79.51 Long term (current) use of inhaled steroids; Z79.891 Long term (current) use of opiate analgesic; Z79.1 Long term (current) use of non-steroidal anti-inflammatories (NSAID); Z79.899 Other long term (current) drug therapy